=== PATIENT | female | born 1985 | race African-American/Black ===

== ENCOUNTER 2018-05-20 11:57 | Observation (INO) | payer MEDICAID ==
[~2018-05-20] VITALS: Ht 160 cm; Wt 94.3 kg
[2018-05-20] MEDS ORDERED: PNV1TABL50 MT (12:37)
== END 2018-05-20 13:20 | disposition home or self-care (01) ==
LOC: 8 EST LDRP 11:57
PROVIDERS: ADMIT Obstetrics & Gynecology; ATTEND Obstetrics & Gynecology
DX: O26.893 Other specified pregnancy related conditions, third trimester (principal); R10.30 Lower abdominal pain, unspecified; R10.2 Pelvic and perineal pain; Z3A.36 36 weeks gestation of pregnancy
CPT/HCPCS: 99281; G0378

== ENCOUNTER 2018-05-24 17:21 | Inpatient (IN) | payer MEDICAID ==
[~2018-05-24] VITALS: Ht 160 cm; Wt 96.2 kg
[~2018-05-24 17:21] MED LIST: PNV1TABL50 MT
[2018-05-24] MEDS ORDERED: DEXT 5%/LR + PITOCIN 20UNITS/L 1,000 ML IV SCH (18:46)
[2018-05-24] MEDS ORDERED: BUTORPHANOL TARTRATE 2 MG/ML VIAL IV PRN (19:00)
[2018-05-24] MEDS ORDERED: MISOPROSTOL 100MCG TABLET VG SCH (19:00)
[2018-05-24] MEDS ORDERED: CARBOPROST TROMETHAMINE 250 MCG/ML AMPUL IM PRN (19:00)
[2018-05-24] MEDS ORDERED: NALOXONE HCL 0.4 MG/ML 1ML VIAL IM PRN (19:00)
[2018-05-24] MEDS ORDERED: METHYLERGONOVINE MALEATE 0.2 MG/ML IM PRN (19:00)
[2018-05-24] MEDS ORDERED: LIDOCAINE HCL 1% 20ML VIAL (Pyxis) INJ INFIL SCH (19:00)
[2018-05-24 19:02] LABS: CLARITY URINE CLEAR (CLEAR); COLOR URINE YELLOW (YELLOW); KETONES URINE NEGATIVE (NEGATIVE); LEUKOCYTE ESTERASE URINE 3+ (NEGATIVE); NITRITE URINE NEGATIVE (NEGATIVE); OCCULT BLOOD URINE NEGATIVE (NEGATIVE); PROTEIN URINE NEGATIVE (NEGATIVE); SPECIFIC GRAVITY URINE 1.018 (1.005-1.030)
[2018-05-24 19:04] LABS: BASOPHILS % 0.4 % (0.0-2.0); EOSINOPHILS % 2.8 % (0.0-5.0); HEMATOCRIT. 37.5 % (36.0-48.0); HEMOGLOBIN. 12.3 g/dL (12.0-16.0); LYMPHOCYTES % 11.5 % (20.0-50.0); MEAN CORPUSCULAR HEMOGLOBIN 27.9 pg (28.0-32.0); MEAN CORPUSCULAR VOLUME 85.3 fL (81.0-99.0); MEAN PLATELET VOLUME 8.8 fl (7.4-10.4); MONOCYTES % 9.8 % (2.0-8.0); NEUTROPHILS % 75.5 % (40.0-76.0); PLATELET 191 x1000/uL (130-400); RED CELL DISTRIBUTION WIDTH 13.7 % (11.6-14.6)
[2018-05-24 19:09] LABS: PARTIAL THROMBOPLASTIN TIME 31.3 sec (23.4-31.0)
[2018-05-24 19:34] LABS: *AMPHETAMINES SCREEN URINE NEGATIVE (NEGATIVE); *BARBITURATES SCREEN URINE NEGATIVE (NEGATIVE); *BENZODIAZEPINES SCREEN URINE NEGATIVE (NEGATIVE)
[2018-05-24 19:35] LABS: *COCAINE SCREEN URINE NEGATIVE (NEGATIVE); CANNABINOID URINE SCREEN NEGATIVE (NEGATIVE); METHADONE URINE SCREEN NEGATIVE (NEGATIVE); OPIATES URINE SCREEN NEGATIVE (NEGATIVE); PHENCYCLIDINE URINE SCREEN NEGATIVE (NEGATIVE)
[2018-05-24] MEDS: LACTATED RINGERS 1,000 ML IV SCH ×2 (19:36→22:57)
[2018-05-24] MEDS ORDERED: PENICILLIN G POTASSIUM 5 MMU in DEXT 5% WATER 100 ML IV SCH (20:00)
[2018-05-24 20:34] LABS: HEPATITIS B SURFACE ANTIGEN NEGATIVE
[2018-05-24] MEDS ORDERED: ROPIVACAINE HCL/PF EPIDURAL 200 ML EPI SCH (23:00)
[2018-05-25] MEDS ORDERED: PENICILLIN G POTASSIUM 2.5 MMU in DEXTROSE 5% WATER 50 ML IV SCH ×2
[2018-05-25] MEDS: LACTATED RINGERS 1,000 ML IV SCH (03:29)
[2018-05-25] MEDS ORDERED: DEXT 5%/LR + PITOCIN 20UNITS/L 1,000 ML IV SCH (08:08)
[2018-05-25] MEDS ORDERED: IBUPROFEN 400MG TABLET PO PRN (08:15)
[2018-05-25] MEDS ORDERED: INFLUENZA VIRUS VACCINE(AFLURIA) 0.5ML SYR IM ONE (08:15)
[2018-05-25] MEDS ORDERED: HEMORRHOIDAL SUPP PR PRN (08:15)
[2018-05-25] MEDS ORDERED: TETANUS, DIPHTHERIA, PERTUSSIS VAC/PF 0.5ML (>7YR OLD) IM ONE (08:15)
[2018-05-25] MEDS ORDERED: IBUPROFEN 800MG TABLET PO PRN (08:15)
[2018-05-25] MEDS ORDERED: DIPHENHYDRAMINE 25MG CAPSULE PO PRN (08:15)
[2018-05-25] MEDS ORDERED: BISACODYL 10MG SUPP PR PRN (08:15)
[2018-05-25] MEDS ORDERED: GLYCERIN/WITCH HAZEL LEAF MEDICATED PAD TOP PRN (08:15)
[2018-05-25] MEDS ORDERED: LANOLIN OINT 0.25 GM TUBE TOP PRN (08:15)
[2018-05-25 14:00] VITALS: BP 104/67
[2018-05-25] MEDS: ACETAMINOPHEN WITH CODEINE 300/30MG TABLET PO PRN (14:26)
[2018-05-25 14:30] VITALS: BP 101/64
[2018-05-25 16:00] VITALS: BP 116/72
[2018-05-25] MEDS: DOCUSATE SODIUM 100MG CAPSULE PO SCH (21:14)
[2018-05-25] MEDS: SIMETHICONE 80MG TABLET CHEW PO SCH (21:16)
[2018-05-25 22:00] VITALS: BP 105/71
[2018-05-26 06:00] VITALS: BP 103/72
[2018-05-26 06:03] LABS: BASOPHILS % 0.6 % (0.0-2.0); EOSINOPHILS % 3.7 % (0.0-5.0); HEMATOCRIT. 36.6 % (36.0-48.0); HEMOGLOBIN. 11.8 g/dL (12.0-16.0); LYMPHOCYTES % 17.9 % (20.0-50.0); MEAN CORPUSCULAR HEMOGLOBIN 27.7 pg (28.0-32.0); MEAN CORPUSCULAR VOLUME 85.8 fL (81.0-99.0); MEAN PLATELET VOLUME 8.8 fl (7.4-10.4); MONOCYTES % 11.4 % (2.0-8.0); NEUTROPHILS % 66.4 % (40.0-76.0); PLATELET 175 x1000/uL (130-400); RED BLOOD CELL COUNT 4.27 mill/uL (4.2-5.4); RED CELL DISTRIBUTION WIDTH 14.1 % (11.6-14.6)
[2018-05-26] MEDS: PRENATAL VIT/FE FUMARATE/FA TABLET PO SCH ×2 (07:45→09:19)
[2018-05-26] MEDS: FERROUS SULFATE 325MG TABLET PO SCH (07:45)
[2018-05-26] MEDS: ACETAMINOPHEN WITH CODEINE 300/30MG TABLET PO PRN (07:46)
[2018-05-26] MEDS: SIMETHICONE 80MG TABLET CHEW PO SCH ×2 (07:47→21:23)
[2018-05-26 07:57] VITALS: BP 101/65
[2018-05-26] MEDS ORDERED: MEDROXYPROGESTERONE ACETATE 150MG/ML VIAL IM SCH (12:00)
[2018-05-26 14:00] VITALS: BP 101/65
[2018-05-26 16:00] VITALS: BP 118/89
[2018-05-26] MEDS: DOCUSATE SODIUM 100MG CAPSULE PO SCH (21:22)
[2018-05-26 22:00] VITALS: BP 121/81
[2018-05-27 06:00] VITALS: BP 104/68
[2018-05-27 08:00] VITALS: BP 109/76
[2018-05-27] MEDS: SIMETHICONE 80MG TABLET CHEW PO SCH (09:43)
[2018-05-27] MEDS: PRENATAL VIT/FE FUMARATE/FA TABLET PO SCH (09:43)
[2018-05-27] MEDS: FERROUS SULFATE 325MG TABLET PO SCH (09:43)
== END 2018-05-27 10:30 | disposition home or self-care (01) | DRG 560 ==
LOC: 8 EST LDRP 17:21 → OBSVTOIN 17:21 → 8EST 05-25 14:21
PROVIDERS: ADMIT Obstetrics & Gynecology; ATTEND Obstetrics & Gynecology
PROC: 10E0XZZ Delivery of Products of Conception, External Approach (ICD-10-PCS; principal; 2018-05-26)
PROC: 3E0R3BZ Introduction of Anesthetic Agent into Spinal Canal, Percutaneous Approach (ICD-10-PCS; 2018-05-26)
PROC: 00HU33Z Insertion of Infusion Device into Spinal Canal, Percutaneous Approach (ICD-10-PCS; 2018-05-26)
DX: O99.52 Diseases of the respiratory system complicating childbirth (principal); J45.909 Unspecified asthma, uncomplicated; K29.70 Gastritis, unspecified, without bleeding; O99.62 Diseases of the digestive system complicating childbirth; Z37.0 Single live birth; Z3A.36 36 weeks gestation of pregnancy
CPT/HCPCS: 36415; 80305; 86592; 86703; 86762; 86850; 86900; 87340; 99281; J1050; J2540; J2590; J2795; J7060; A4315

== ENCOUNTER 2019-12-05 11:23 | Observation (INO) | payer MEDICAID ==
[2019-12-05 13:36] LABS: CLARITY URINE CLEAR (CLEAR); COLOR URINE YELLOW (YELLOW); KETONES URINE NEGATIVE (NEGATIVE); LEUKOCYTE ESTERASE URINE 3+ (NEGATIVE); NITRITE URINE NEGATIVE (NEGATIVE); OCCULT BLOOD URINE NEGATIVE (NEGATIVE); PH URINE 6.5 (4.5-8.0); PROTEIN URINE NEGATIVE (NEGATIVE); SPECIFIC GRAVITY URINE 1.013 (1.005-1.030)
== END 2019-12-05 14:50 | disposition home or self-care (01) ==
LOC: 8 EST LDRP 11:23 → 8 EST A/PP 11:50
PROVIDERS: ADMIT Obstetrics & Gynecology; ATTEND Obstetrics & Gynecology
DX: O26.892 Other specified pregnancy related conditions, second trimester (principal); Z3A.20 20 weeks gestation of pregnancy; R10.30 Lower abdominal pain, unspecified
CPT/HCPCS: 59025; 81003; G0378; 99281